=== PATIENT | female | born 1945 | race Caucasian/White ===

== ENCOUNTER 2021-10-15 09:59 | Inpatient (IN) | payer MEDICARE, OTHER ==
[~2021-10-15] VITALS: Ht 157.5 cm; Wt 66.1 kg
[2021-10-15] MEDS ORDERED: ASPI-1450 PO (10:16)
[2021-10-15] MEDS ORDERED: FLUO20CA36 PO (10:16)
[2021-10-15] MEDS ORDERED: LEVO88TA4 PO (10:16)
[2021-10-15] MEDS ORDERED: ATOR40TA28 PO (10:16)
[2021-10-15] MEDS ORDERED: EZET10TA57 PO (10:16)
[2021-10-15] MEDS ORDERED: LISI-893 PO (10:16)
[2021-10-15] MEDS ORDERED: FLUT16H NASAL (10:16)
[2021-10-15] MEDS ORDERED: AMLO-258 PO (10:16)
[2021-10-15] MEDS ORDERED: DOCU-385 PO (10:16)
[2021-10-15] MEDS ORDERED: METO-558 PO (10:16)
[2021-10-15 10:39] LABS: COVID AG,FIA SOURCE NASOPHARYNGEAL
[2021-10-15 11:00] LABS: BASOPHILS % (AUTO) 0.9 % (0.0-2.0); EOSINOPHILS % (AUTO) 0.6 % (1.0-6.0); HEMATOCRIT 44.9 % (36-46); HEMOGLOBIN 14.8 g/dL (12.0-16.0); LYMPHOCYTES # (AUTO) 1.6 K/uL (1.0-4.8); LYMPHOCYTES % (AUTO) 17.6 % (22.0-44.0); MEAN CORPUSCULAR HEMOGLOBIN 27.4 pg (26.0-34.0); MEAN CORPUSCULAR HGB CONC 32.9 G/dL (31.0-37.0); MEAN CORPUSCULAR VOLUME 83 fL (80-100); MONOCYTES # (AUTO) 0.8 K/uL (0.1-1.0); NEUTROPHILS # (AUTO) 6.5 K/uL (1.8-7.7); NEUTROPHILS % (AUTO) 71.9 % (40.0-70.0); PLATELET COUNT (AUTO) 278 K/uL (150-450); RED CELL DISTRIBUTION WIDTH 14.2 % (11.5-14.5)
[2021-10-15 11:08] LABS: ANION GAP 6 mmol/L (8-16); CALCIUM, TOTAL 8.8 mg/dL (8.8-10.5); CARBON DIOXIDE 28 mmol/L (22-29); CHLORIDE 102 mmol/L (98-107); CREATININE 0.82 mg/dL (0.60-1.30); GLUCOSE,RANDOM 118 mg/dL (70-110); POTASSIUM 3.8 mmol/L (3.5-5.1); SODIUM SERUM 136 mmol/L (136-145); UREA NITROGEN, BLOOD 14 mg/dL (7-18)
[2021-10-15 11:10] LABS: GLOMERULAR FILTR. RATE CALC > 60 mL/min (>60)
[2021-10-15] MEDS ORDERED: ASPI-1444 PO (11:55)
[2021-10-15] MEDS ORDERED: CLOP75TA32 PO (11:55)
[2021-10-15] MEDS ORDERED: ASPIRIN 81 MG CHEWABLE TABLET PO ONE (12:00)
[2021-10-15] MEDS ORDERED: CLOPIDOGREL BISULFATE 75 MG TABLET PO ONE (12:00)
[2021-10-15] MEDS ORDERED: ONDANSETRON HCL 4 MG/2 ML VIAL IVP PRN ×2 (12:30→14:15)
[2021-10-15] MEDS ORDERED: ACETAMINOPHEN 325 MG TABLET PO PRN ×2 (12:30→14:15)
[2021-10-15 14:05] VITALS: BP 119/70
[2021-10-15] MEDS ORDERED: MORPHINE SULFATE 2 MG/ML SYRINGE IVP PRN (14:15)
[2021-10-15] MEDS ORDERED: ZOLPIDEM TARTRATE 5 MG TABLET PO PRN (14:15)
[2021-10-15] MEDS ORDERED: MAGNESIUM HYDROXIDE SUSPENSION 30 ML UDCUP PO PRN (14:15)
[2021-10-15] MEDS ORDERED: BISACODYL 10 MG RECTAL RECTAL SUPPOSITORY PR PRN (14:15)
[2021-10-15 16:50] VITALS: BP 121/72
[2021-10-15] MEDS: HEPARIN SODIUM,PORCINE 5,000 UNITS/ML VIAL SQ SCH (18:37)
[2021-10-15 19:18] VITALS: BP 112/66
[2021-10-15] MEDS: DOCUSATE SODIUM 100 MG CAPSULE PO SCH (20:12)
[2021-10-15] MEDS: ATORVASTATIN CALCIUM 40 MG TABLET PO SCH (20:12)
[2021-10-15] MEDS ORDERED: ATORVASTATIN CALCIUM 20 MG TABLET PO SCH (21:00)
[2021-10-15 23:54] VITALS: BP 97/54
[2021-10-16] MEDS: LEVOTHYROXINE SODIUM 88 MCG TABLET PO SCH (05:30)
[2021-10-16 05:52] LABS: BASOPHILS % (AUTO) 1.4 % (0.0-2.0); EOSINOPHILS % (AUTO) 2.8 % (1.0-6.0); HEMATOCRIT 42.4 % (36-46); HEMOGLOBIN 14.3 g/dL (12.0-16.0); LYMPHOCYTES # (AUTO) 1.5 K/uL (1.0-4.8); LYMPHOCYTES % (AUTO) 21.7 % (22.0-44.0); MEAN CORPUSCULAR HEMOGLOBIN 27.6 pg (26.0-34.0); MEAN CORPUSCULAR HGB CONC 33.6 G/dL (31.0-37.0); MEAN CORPUSCULAR VOLUME 82 fL (80-100); MONOCYTES # (AUTO) 0.7 K/uL (0.1-1.0); NEUTROPHILS # (AUTO) 4.5 K/uL (1.8-7.7); NEUTROPHILS % (AUTO) 64.1 % (40.0-70.0); PLATELET COUNT (AUTO) 250 K/uL (150-450); RED BLOOD CELL COUNT(AUTO) 5.17 MIL/uL (4.00-5.20); RED CELL DISTRIBUTION WIDTH 14.5 % (11.5-14.5)
[2021-10-16 06:14] LABS: ANION GAP 6 mmol/L (8-16); CALCIUM, TOTAL 8.7 mg/dL (8.8-10.5); CARBON DIOXIDE 29 mmol/L (22-29); CHLORIDE 105 mmol/L (98-107); CHOL/HDL RATIO 2.9 (3.9-5.7); CHOLESTEROL 164 mg/dL (131-200); CREATININE 0.65 mg/dL (0.60-1.30); GLUCOSE,RANDOM 82 mg/dL (70-110); HDL CHOLESTEROL 57 mg/dL (40-60); LDL CHOL (CALC.) 93 mg/dL (0-130); POTASSIUM 4.1 mmol/L (3.5-5.1); SODIUM SERUM 140 mmol/L (136-145); TRIGLYCERIDES 68 mg/dL (15-150); UREA NITROGEN, BLOOD 12 mg/dL (7-18)
[2021-10-16 06:16] LABS: GLOMERULAR FILTR. RATE CALC > 60 mL/min (>60)
[2021-10-16 06:20] VITALS: BP 123/59
[2021-10-16 07:05] LABS: THYROID STIMULATING HORMONE 1.29 uIU/mL (0.36-3.74)
[2021-10-16 07:14] VITALS: BP 120/70
[2021-10-16] MEDS: AmLODIPine BESYLATE 10 MG TABLET PO SCH (09:00)
[2021-10-16] MEDS ORDERED: ASPIRIN 81 MG CHEWABLE TABLET PO SCH (09:00)
[2021-10-16] MEDS: METOPROLOL SUCCINATE 50 MG ER TABLET PO SCH (09:00)
[2021-10-16] MEDS: DOCUSATE SODIUM 100 MG CAPSULE PO SCH ×2 (10:38→20:14)
[2021-10-16] MEDS: EZETIMIBE 10 MG TABLET PO SCH (10:38)
[2021-10-16] MEDS: HEPARIN SODIUM,PORCINE 5,000 UNITS/ML VIAL SQ SCH ×5 (10:38→23:43)
[2021-10-16] MEDS: CLOPIDOGREL BISULFATE 75 MG TABLET PO SCH (10:39)
[2021-10-16] MEDS: PANTOPRAZOLE SODIUM 40 MG DR TABLET PO SCH (10:39)
[2021-10-16] MEDS: ASPIRIN 81 MG DR TABLET PO SCH (10:39)
[2021-10-16 11:31] VITALS: BP 126/76
[2021-10-16 15:08] VITALS: BP 136/74
[2021-10-16 19:59] VITALS: BP 119/57
[2021-10-16] MEDS: ATORVASTATIN CALCIUM 40 MG TABLET PO SCH (20:14)
[2021-10-17 00:12] VITALS: BP 125/69
[2021-10-17 05:10] VITALS: BP 136/76
[2021-10-17 05:50] LABS: BASOPHILS % (AUTO) 2.6 % (0.0-2.0); EOSINOPHILS % (AUTO) 3.2 % (1.0-6.0); HEMATOCRIT 47.8 % (36-46); HEMOGLOBIN 15.8 g/dL (12.0-16.0); LYMPHOCYTES # (AUTO) 2.2 K/uL (1.0-4.8); LYMPHOCYTES % (AUTO) 28.8 % (22.0-44.0); MEAN CORPUSCULAR HEMOGLOBIN 27.4 pg (26.0-34.0); MEAN CORPUSCULAR VOLUME 83 fL (80-100); MONOCYTES # (AUTO) 0.8 K/uL (0.1-1.0); NEUTROPHILS # (AUTO) 4.2 K/uL (1.8-7.7); NEUTROPHILS % (AUTO) 54.4 % (40.0-70.0); PLATELET COUNT (AUTO) 271 K/uL (150-450); RED BLOOD CELL COUNT(AUTO) 5.74 MIL/uL (4.00-5.20); RED CELL DISTRIBUTION WIDTH 14.3 % (11.5-14.5)
[2021-10-17 06:28] LABS: ANION GAP 9 mmol/L (8-16); CALCIUM, TOTAL 8.9 mg/dL (8.8-10.5); CARBON DIOXIDE 28 mmol/L (22-29); CHLORIDE 101 mmol/L (98-107); CREATININE 0.77 mg/dL (0.60-1.30); GLUCOSE,RANDOM 96 mg/dL (70-110); POTASSIUM 4.2 mmol/L (3.5-5.1); SODIUM SERUM 138 mmol/L (136-145); UREA NITROGEN, BLOOD 12 mg/dL (7-18)
[2021-10-17 06:32] LABS: GLOMERULAR FILTR. RATE CALC > 60 mL/min (>60)
[2021-10-17] MEDS: LEVOTHYROXINE SODIUM 88 MCG TABLET PO SCH (06:39)
[2021-10-17 07:37] VITALS: BP 112/63
[2021-10-17] MEDS: HEPARIN SODIUM,PORCINE 5,000 UNITS/ML VIAL SQ SCH ×2 (08:36→16:00)
[2021-10-17] MEDS: CLOPIDOGREL BISULFATE 75 MG TABLET PO SCH (08:37)
[2021-10-17] MEDS: EZETIMIBE 10 MG TABLET PO SCH (08:37)
[2021-10-17] MEDS: HYDROCODONE/ACETAMINOPHEN 5-325 MG TABLET PO PRN ×2 (08:37→15:07)
[2021-10-17] MEDS: DOCUSATE SODIUM 100 MG CAPSULE PO SCH (08:37)
[2021-10-17] MEDS: ASPIRIN 81 MG DR TABLET PO SCH (08:37)
[2021-10-17] MEDS: AmLODIPine BESYLATE 10 MG TABLET PO SCH (08:37)
[2021-10-17] MEDS: PANTOPRAZOLE SODIUM 40 MG DR TABLET PO SCH (08:37)
[2021-10-17] MEDS: METOPROLOL SUCCINATE 50 MG ER TABLET PO SCH (08:38)
[2021-10-17 12:03] VITALS: BP 125/5
[2021-10-17 15:25] VITALS: BP 133/49
[2021-10-17 19:41] VITALS: BP 107/60
== END 2021-10-17 20:20 | DRG 917 ==
LOC: EMS 10:02 → 5S 12:33
PROVIDERS: ADMIT Internal Medicine; ATTEND Internal Medicine
DX: T40.601A Poisoning by unspecified narcotics, accidental (unintentional), initial encounter (principal); G92.8 Other toxic encephalopathy; E87.1 Hypo-osmolality and hyponatremia; I69.351 Hemiplegia and hemiparesis following cerebral infarction affecting right dominant side; I10 Essential (primary) hypertension; E66.3 Overweight; E87.6 Hypokalemia; F03.90 Unspecified dementia, unspecified severity, without behavioral disturbance, psychotic disturbance, mood disturbance, and anxiety; E78.00 Pure hypercholesterolemia, unspecified; Z20.822 Contact with and (suspected) exposure to COVID-19; E78.5 Hyperlipidemia, unspecified; F11.10 Opioid abuse, uncomplicated; Z79.899 Other long term (current) drug therapy; Z79.82 Long term (current) use of aspirin; Z79.02 Long term (current) use of antithrombotics/antiplatelets; Z68.26 Body mass index [BMI] 26.0-26.9, adult
CPT/HCPCS: 70450; 70551; 71045; 80048; 80061; 84443; 85025; 87081; 92610; 93005; 93306; 93880; 97162; 99291; J1644; 36415-L1; 36415-TC